=== PATIENT | male | born 1955 | race Caucasian/White ===

== ENCOUNTER → 2018-01-11 | Outpatient (CLI) | payer BC | LOC: BMCIMAGING 10:23 | PROVIDERS: ATTEND Internal Medicine | DX: J40 Bronchitis, not specified as acute or chronic (principal); M41.84 Other forms of scoliosis, thoracic region; M51.34 Other intervertebral disc degeneration, thoracic region ==

== ENCOUNTER 2018-04-24 18:18 | Emergency (ER) | payer BC ==
--- NOTE | 2018-04-24 18:28 | EDPHY ---
H & P Stated Complaint: kilpatrick not draining well--numerous insertion attempts w/clots Time Seen by Provider: 04/24/18 18:27 - Medical/Surgical History Hx Asthma: No Hx Chronic Respiratory Disease: No Hx Diabetes: No Hx Cardiac Disease: No Hx Renal Disease: No Hx Cirrhosis: No Hx Alcoholism: No Hx HIV/AIDS: No Hx Splenectomy or Spleen Trauma: No Other PMH: BPH, hypothyroid, inguinal hernia - Social History Smoking Status: Never smoked Constitutional: Initial Vital Signs Temperature (C) 36.7 C 04/24/18 18:23 Heart Rate 81 04/24/18 18:23 Respiratory Rate 16 04/24/18 18:23 Blood Pressure 133/87 H 04/24/18 18:23 O2 Sat (%) 97 04/24/18 18:23 O2 Delivery Mode Room Air Allergies/Adverse Reactions: No Known Allergies Allergy (Verified 04/24/18 18:20) Home Medications: Medication Instructions Recorded Amoxicillin 04/24/18 Levothyroxine 04/24/18 Medical Decision Making ED Course/Re-evaluation: CHIEF COMPLAINT: Kilpatrick problems HISTORY OF PRESENT ILLNESS: The patient is a 63 y/o male with a history of BPH post GreenLight procedure arriving with his complaining of Kilpatrick catheter blockage. While flying home from [facility] [place] on Thursday, 3 days ago, he realized his Kilpatrick catheter was blocked. He attempted to recatheterize on the flight unsuccessfully with single-use catheters and says, "I may have done some damage. " On landing in [place], he went to the closest ED where they had multiple catheter attempts and ultimately a urologist had to place a Kilpatrick with a cystoscope. The following day he again developed urinary blockage and went to another ED where they were able to flush blood clots out of the Kilpatrick successfully. The catheter became blocked again Thursday morning and required another ED visit. He arrived home this morning and had about a 30-hour period of normal urinary drainage until it became blocked again around 15:00 this afternoon, 3.5 hours ago. He has associated suprapubic discomfort. No fever, vomiting, diarrhea, chest pain, dyspnea, or other symptoms. He is scheduled to see his urologist, Dr. Mitchell, on Thursday. REVIEW OF SYSTEMS: A 10 point review of systems was performed and is negative with the exception of the elements mentioned in the history of present illness. PHYSICAL EXAM: HR, BP, O2 Sat, RR. Temp noted General Appearance: Alert, well hydrated, appropriate, and non-toxic appearing. Head: Atraumatic without scalp tenderness or obvious injury Eyes: Pupils equal, round, reactive to light and accommodation, EOMI, no trauma , no injection. Nose: Atraumatic, no rhinorrhea, clear. Throat: Mucus membranes moist. Neck: Supple. Respiratory: No retractions, no distress, no wheezes, and no accessory muscle use. Lungs are clear to auscultation bilaterally. Cardiovascular: Regular rate and rhythm, no murmurs, rubs, or gallops. Good capillary refill all extremities. Gastrointestinal: Abdomen is soft, nontender, non-distended, no masses, no rebound, no guarding, no peritoneal signs. Kilpatrick bag almost empty, pink-tinged urine with clots present. Musculoskeletal: Normal active ROM of all extremities, atraumatic. Neurological: Alert, appropriate, and interactive. Nonfocal. Skin: No rashes, good turgor, no nodules on palpation. Past medical history: BPH, hypothyroid Past surgical history: inguinal hernia, GreenLight laser surgery Family history: Noncontributory Social history: at bedside. Lives in [place]. Employed. Urologist: Dr. Mitchell DIFFERENTIAL DIAGNOSIS: The differential diagnosis for the patient's urinary retention included but was not limited to medication side effect, neurologic causes, outflow obstruction including prostatic hypertrophy, and infection. MEDICAL DECISION MAKING: This is a 63 y/o male with BPH with a 3-day history of recurrent blocked Kilpatrick issues who presents with a non-draining Kilpatrick for the last 3.5 hours. This most recent Kilpatrick required placement by a urologist via cystoscope 3 days ago while he was traveling and has been blocked multiple times since then. He has a small quantity of pink-tinged urine and blood clots in his leg bag. Bladder scan shows about 100mL of urine. Plan for catheter flushing to see if we can dislodge clot and avoid replacing Kilpatrick since he required cystoscopy for placement. Flushing was successful. Patient will be discharged home with standard care and follow up instructions. He is scheduled to see Dr. Mitchell on Thursday. Return precautions discussed. Departure - Departure Disposition: Home, Routine, Self-Care Clinical Impression: Kiplatrick catheter problem Qualifiers: Encounter type: initial encounter Qualified Code(s): T83.9XXA - Unspecified complication of genitourinary prosthetic device, implant and graft, initial encounter Condition: Good Instructions: Kilpatrick Catheter Placement and Care (ED) Additional Instructions: If you have not produced urine in the next 6-8 hours, please return to the ED. Otherwise follow up with Dr. Mitchell on Thursday as planned. Referrals: Christian Reyes MD [Primary Care Provider] - As per Instructions Thanh Mitchell MD [Medical Doctor] - As per Instructions Report Scribed for: Jonathan Stacy Report Scribed by: Caty Billingsley Date of Report: 04/24/18 Time of Report: 18:29
[2018-04-24 21:05] VITALS: BP 127/70
== END 2018-04-24 21:07 | disposition home or self-care (01) ==
DX: T83.098A Other mechanical complication of other urinary catheter, initial encounter (principal); Y82.8 Other medical devices associated with adverse incidents

== ENCOUNTER 2018-05-13 09:30 | Inpatient (IN) | payer OTHER ==
--- NOTE | 2018-05-12 17:58 | GHP ---
[f rep st] PREOP HISTORY AND PHYSICAL ADMISSION DIAGNOSIS: Urinary retention. HISTORY: This is a 63-year-old gentleman who has had elevated PSA and he has had MRIs and biopsy of the prostate revealing no suggestion of cancer. He has had a prostate that is greater than 180 g in size and most recently he has got a urinary retention and we have elected to intervene with a suprapubic prostatectomy. Indications, complications, options have been discussed. Written and verbal consent were obtained and he is admitted for the above procedure. PAST HISTORY: He has had BPH with elevated PSA. Biopsies and TURP in the past. Has had hypothyroidism, mitral valve prolapse, prostatitis, testicular atrophy, urinary retention. PAST SURGERIES: Laser prostatectomy. MEDICATIONS: Synthroid, tamsulosin, vitamin D. ALLERGIES: None. FAMILY HISTORY: Positive for diabetes and hypertension. SOCIAL HISTORY: Drinks a small amount of alcohol daily and is a nonsmoker, . REVIEW OF SYSTEMS: Negative cardiac, respiratory, GI, and endocrine. PHYSICAL EXAMINATION: VITAL SIGNS: Stable. CHEST: Clear. HEART: Regular rate and rhythm. ABDOMEN: Normal. No organomegaly, rebound, or guarding. GENITALIA: Normal. He has had prior evaluation of the prostate which revealed prostatomegaly and urinary retention. At the present time, he is admitted for a suprapubic prostatectomy. Indication , complications, options outlined well. /[id number]/MODL MTDD
[2018-05-13] MEDS ORDERED: LR 1,000 ML IV ONE (09:38)
[2018-05-13] MEDS ORDERED: ceFAZolin 2 GM/DEXTROSE 100 ML IV ONE (09:45)
--- NOTE | 2018-05-13 10:28 | PDHPUP ---
History & Physical Update H&P update statement: This history and physical update is based on an assessment of the patient which was completed after admission or registration (within 24 hours), but prior to the surgery/procedure. H&P update: H&P reviewed & patient examined, no change in patient's condition since H&P completed
[2018-05-13] MEDS ORDERED: PROPOFOL 200 MG/20 ML VIAL ONE (10:33)
[2018-05-13] MEDS ORDERED: fentaNYL 100 MCG/2 ML INJ ONE ×4 (10:33→17:56)
[2018-05-13] MEDS ORDERED: LIDOCAINE 2% 2 ML INJ ONE (10:35)
[2018-05-13] MEDS ORDERED: ONDANSETRON 4 MG/2 ML VIAL ONE (10:36)
[2018-05-13] MEDS ORDERED: ROCURONIUM 50 MG/5 ML VIAL ONE ×2 (10:36→11:19)
[2018-05-13] MEDS ORDERED: DEXAMETHASONE 4 MG/ML VIAL ONE ×2 (10:36→18:40)
[2018-05-13] MEDS ORDERED: KETOROLAC 30 MG/1 ML SDV ONE (10:38)
[2018-05-13] MEDS ORDERED: MIDAZOLAM 2 MG/2 ML VIAL IVP ONE (10:42)
--- NOTE | 2018-05-13 10:43 | PDANEPAE ---
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 - Pulmonary History Hx COPD: No Hx Asthma/Reactive Airway Disease: No Hx Recent Upper Respiratory Infection: No Hx Oxygen in Use at Home: No Hx Sleep Apnea: No Sleep Apnea Screening Result - Last Documented: Negative Pulmonary History Comment: developed cough earlier this spring used inhaler for few weeks resolved - Neurologic History Hx Cerebrovascular Accident: No Hx Seizures: No Hx Dementia: No - Endocrine History Hx Diabetes: No - Renal History Hx Renal Disorders: No - Liver History Hx Hepatic Disorders: No - Neurological & Psychiatric Hx Hx Neurological and Psychiatric Disorders: No - Cancer History Hx Cancer: No - Congenital Disorder History Hx Congenital Disorders: No - GI History Hx Gastrointestinal Disorders: No - Other Health History Other Health History: none - Chronic Pain History Chronic Pain: No - Surgical History Prior Surgeries: greenlight laser ,colonoscopy ANE Review of Systems Review of Systems: - Exercise capacity METS (RN): 4 METS ANE Patient History - Allergies Allergies/Adverse Reactions: No Known Allergies Allergy (Verified 04/24/18 18:20) - Home Medications Home medications: home medication list seen and reviewed Home Medications: Levothyroxine [Synthroid 175 mcg (*)] 175 mcg PO DAILY06 04/24/18 [Last Taken ] - NPO status NPO Since - Liquids (Date): 05/12/18 NPO Since - Liquids (Time): 23:30 NPO Since - Solids (Date): 05/12/18 NPO Since - Solids (Time): 20:30 - Anes Hx Anes Hx: no prior problems - Smoking Hx Smoking Status: Never smoked - Family Anes Hx Family Hx Anesthesia Complications: none ANE Labs/Vital Signs - Vital Signs Blood Pressure: 149/94 Heart Rate: 68 Respiratory Rate: 14 O2 Sat (%): 96 Height: 177.8 cm Weight: 71.668 kg ANE Physical Exam - Airway Neck exam: FROM Mallampati Score: Class 1 Mouth exam: normal dental/mouth exam - Pulmonary Pulmonary: no respiratory distress - Cardiovascular Cardiovascular: regular rate and rhythym - ASA Status ASA Status: II ANE Anesthesia Plan Anesthesia Plan: general endotracheal anesthesia
[2018-05-13] MEDS ORDERED: HYDROmorphONE/DILAUDID 2 MG/ML INJ ONE (11:06)
[2018-05-13] MEDS ORDERED: BUPIVACAINE 0.25% 270 ML in PUMP SET 1 EA NB SCH (11:15)
[2018-05-13] MEDS ORDERED: DIAZEPAM 5 MG/ML 1 ML SYR IVP PRN (11:54)
[2018-05-13] MEDS ORDERED: ALBUTEROL 3 ML DEYVIAL IH PRN (11:54)
[2018-05-13] MEDS ORDERED: NALOXONE HCL 0.4 MG/ML INJ IVP PRN ×2 (11:54→12:53)
[2018-05-13] MEDS ORDERED: PHENYLEPHRINE HCL 100 MCG/ML SYR IVP PRN (11:54)
[2018-05-13] MEDS ORDERED: HYDROCODONE/APAP 5/325 TAB PO PRN (11:54)
[2018-05-13] MEDS ORDERED: fentaNYL 100 MCG/2 ML INJ IVP PRN (11:54)
[2018-05-13] MEDS ORDERED: ONDANSETRON 4 MG/2 ML VIAL IVP PRN ×2 (11:54→12:53)
[2018-05-13] MEDS ORDERED: LABETALOL HCL 5 MG/ML 20 ML MDV IVP PRN (11:54)
[2018-05-13] MEDS ORDERED: LR 500 ML IV PRN (11:54)
[2018-05-13] MEDS ORDERED: PROMETHAZINE HCL 25 MG/ML INJ IVP PRN (11:54)
[2018-05-13] MEDS ORDERED: ACETAMINOPHEN 500 MG TAB PO PRN (11:54)
[2018-05-13] MEDS ORDERED: oxyCODONE IR 5 MG TAB PO PRN (11:54)
--- NOTE | 2018-05-13 11:54 | POSTANESTH ---
Post Anesthetic Evaluation Cardiovascular Status: Normal, Stable Respiratory Status: Normal, Stable Level of Consciousness/Mental Status: Can Participate in Eval, Alert and Oriented Pain Control: Adequate, Prn Tx Ordered Nausea/Vomiting Control: Adequate, Prn Tx Ordered Complications Possibly Related to Anesthesia: None Noted
[2018-05-13] MEDS ORDERED: SUGAMMADEX SODIUM 200 MG/2 ML VIAL IVP ONE (11:57)
[2018-05-13] MEDS ORDERED: BUPIVACAINE 0.25% 30 ML SDV ONE (12:21)
[2018-05-13] MEDS ORDERED: HYDROmorphONE/DILAUDID 6 MG/30 ML PCA IV PRN (12:53)
[2018-05-13] MEDS ORDERED: ONDANSETRON DISINTEGRATING 4 MG TAB PO PRN (12:53)
--- NOTE | 2018-05-13 12:53 | POSTOPPROG ---
Post Op Note Date of Operation: 05/13/18 (dictated) Surgeon: Thanh Mitchell Property Insurance Inspector: Milagro Anesthesiologist: Howie Anesthesia: GET(General Endotracheal) Pre-op Diagnosis: bph with retention Procedure: sp cath and on-Q-pain pumps and suprapubic cystostomy Inf/Abcess present in the surg proc area at time of surgery?: No EBL: 100-500 Complications: none Drains: Scooby Choe, Other (sp cath, onQpumps) Specimen(s): sent
[2018-05-13] MEDS ORDERED: HYDROmorphONE/DILAUDID 1 MG/ML INJ ONE (13:04)
[2018-05-13] MEDS ORDERED: DIAZEPAM 5 MG/ML 1 ML SYR ONE (13:05)
[2018-05-13] MEDS: HYDROmorphONE/DILAUDID 1 MG/ML INJ IVP PRN ×3 (13:06→14:06)
--- NOTE | 2018-05-13 13:06 | GOP ---
[f rep st] OPERATIVE REPORT DATE OF OPERATION: 05/13/2018 SURGEON: Thanh Mitchell MD RETREAD MOLD OPERATOR: Viry Humphrey CFA ANESTHESIA: General. PREOPERATIVE DIAGNOSIS: Benign prostatic hypertrophy, urinary retention with prostatomegaly. POSTOPERATIVE DIAGNOSIS: Benign prostatic hypertrophy, urinary retention with prostatomegaly. PROCEDURE PERFORMED: Open suprapubic simple prostatectomy and placement of ON-Q pain pump, and supra pubic cystostomy tube. FINDINGS: SPECIMENS: Sent to Pathology. ESTIMATED BLOOD LOSS: Per Anesthesia was 350 mL. DESCRIPTION OF PROCEDURE: After undergoing general anesthesia, prepped and draped in normal sterile fashion, and a catheter was passed in his bladder, a midline incision was made infraumbilical through the linea alba into the space of Retzius. With appropriate self-retraction, I was able to identify the anterior bladder wall, which was incised and opened that, and then with appropriate instrumentati on, could identify the obstructive prostate and could identify the ureteral orifices. At that point, I circumscribed the bladder neck with the electrocautery coagulation mode, and then enucleated the p rostate intact. At the end, I put sutures at the 4-1/2 to 5 hour side on the right side and 7-1/2 to 8 on the left to provide hemostasis, and then passed a Phillip catheter placed with 90 cc balloon and traction placed, and that controlled any venous bleeding identified. At that point, the bladder was closed in 2 layers using 0 Vicryl, and then subcutaneous tissue was hemostatic and the space of Retzi us hemostatic. I elected to place a 10 flat Scooby-Choe drain. Prior to the bladder closure, a 20 -Mont[place] Malecot tube was passed to the left side of the bladder wall and came out through the abdomin al wall through a separate incision. The bladder was tested and noted to be watertight and irrigated . All the catheters irrigated well. Then I started CBI, which continued to irrigate during closure of the wound. Two ON-Q pain pumps were placed to the right and left sides of the abdominal incision subfascially, and they were primed with 15 mL of anesthetic bilaterally. Then the wound was closed u sing 0 Vicryl in the fascia, the subcutaneous tissue, hemostatic skin vincent placed. Drains were se wn in place with silk, and sterile dressing was placed. He tolerated the procedure well. COMPLICATIONS: None. He will be admitted for postoperative care. /[id number]/MODL
[2018-05-13] MEDS ORDERED: OPIUM/BELLADONNA ALKALO SUPP PR ONE (13:55)
[2018-05-13] MEDS: OPIUM/BELLADONNA ALKALO SUPP PR PRN (13:59)
--- NOTE | 2018-05-13 13:59 | PDMN ---
Medical Necessity Medical necessity: Pt meets inpt criteria per MD order and Urologic surgery or procedure GRG, inpt only surgery: Open suprapubic simple prostatectomy and placement of O N-Q pain pump and suprapubic cystostomy tube.
[2018-05-13] MEDS ORDERED: HYDROCODONE/APAP 5/325 TAB ONE (14:24)
[2018-05-13] MEDS: D5W 1/2 NS 1,000 ML IV SCH ×2 (16:40→21:47)
[2018-05-13 17:24] LABS: PLATELET COUNT 259 10^3/uL (150-400)
[2018-05-13] MEDS ORDERED: SUCCINYLCHOLINE CHLORIDE 200 MG/10 ML SYR IVP ONE (18:01)
[2018-05-13] MEDS ORDERED: CISATRACURIUM BESYLATE 20 MG/10 ML VIAL IV ONE (18:09)
[2018-05-13] MEDS ORDERED: PHENYLEPHRINE 10 MG/ML SDV ONE (18:11)
[2018-05-13] MEDS ORDERED: MIDAZOLAM 2 MG/2 ML VIAL ONE (18:17)
[2018-05-13] MEDS ORDERED: THROMBIN (BOVINE) 20,000 UNIT SPRAY TP ONE (18:30)
--- NOTE | 2018-05-13 18:58 | POSTANESTH ---
Post Anesthetic Evaluation Cardiovascular Status: Normal, Stable Respiratory Status: Normal, Stable Level of Consciousness/Mental Status: Can Participate in Eval, Alert and Oriented Pain Control: Adequate, Prn Tx Ordered Nausea/Vomiting Control: Adequate, Prn Tx Ordered Complications Possibly Related to Anesthesia: None Noted (transported to ICU on monitors. stable, comfortable, off pressors.)
--- NOTE | 2018-05-13 18:58 | PDANEPAE ---
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 specialist - Pulmonary History Hx COPD: No Hx Asthma/Reactive Airway Disease: No Hx Recent Upper Respiratory Infection: No Hx Oxygen in Use at Home: No Hx Sleep Apnea: No Sleep Apnea Screening Result - Last Documented: Negative Pulmonary History Comment: developed cough earlier this spring used inhaler for few weeks resolved - Neurologic History Hx Cerebrovascular Accident: No Hx Seizures: No Hx Dementia: No - Endocrine History Hx Diabetes: No - Renal History Hx Renal Disorders: No - Liver History Hx Hepatic Disorders: No - Neurological & Psychiatric Hx Hx Neurological and Psychiatric Disorders: No - Cancer History Hx Cancer: No - Congenital Disorder History Hx Congenital Disorders: No - GI History Hx Gastrointestinal Disorders: No - Other Health History Other Health History: none - Chronic Pain History Chronic Pain: No - Surgical History Prior Surgeries: greenlight laser ,colonoscopy ANE Review of Systems Review of Systems: - Exercise capacity METS (RN): 4 METS ANE Patient History - Allergies Allergies/Adverse Reactions: No Known Allergies Allergy (Verified 04/24/18 18:20) - Home Medications Home Medications: Levothyroxine [Synthroid 175 mcg (*)] 175 mcg PO DAILY06 04/24/18 [Last Taken ] Acetaminophen [Tylenol ES 500 mg (*)] 500 - 1,000 mg PO Q8H PRN 05/13/18 [Last Taken 05/12/18] - NPO status NPO Since - Liquids (Date): 05/12/18 NPO Since - Liquids (Time): 23:30 NPO Since - Solids (Date): 05/12/18 NPO Since - Solids (Time): 20:30 - Smoking Hx Smoking Status: Never smoked - Family Anes Hx Family Hx Anesthesia Complications: none ANE Labs/Vital Signs - Labs Result Diagrams: 05/13/18 17:10 - Vital Signs Blood Pressure: 68/52 Heart Rate: 90 Respiratory Rate: 16 O2 Sat (%): 94 Height: 177.8 cm Weight: 71.668 kg ANE Physical Exam - Airway Neck exam: FROM Mallampati Score: Class 2 Mouth exam: normal dental/mouth exam - Pulmonary Pulmonary: no respiratory distress - Cardiovascular Cardiovascular: regular rate and rhythym - ASA Status ASA Status: II, E ANE Anesthesia Plan Anesthesia Plan: general endotracheal anesthesia Lines/Monitors: arterial line Urgent/Emergent Case: Emma victoria completed preop but documented later for safe timely pt care
[2018-05-13] MEDS ORDERED: [UNRECOGNIZED DRUG - OTHER] IV ONE (19:15)
[2018-05-13] MEDS ORDERED: NS IV ONE (19:15)
[2018-05-13] MEDS ORDERED: *PREOP 1000MG*TRANEX ACID/NS 100 ML IV ONE (19:30)
[2018-05-13 19:34] LABS: INR 1.5 (0.83-1.16); PROTIME(PATIENT) 18.3 SEC (12.0-15.0)
[2018-05-13] MEDS ORDERED: BACITRACIN ZINC 14.2 GM OINTTUBE TP ONE (20:01)
--- NOTE | 2018-05-13 20:47 | POSTOPPROG ---
Post Op Note Date of Operation: 05/13/18 (dictated- discussed with Dr. Ya in handoff to ICU) Surgeon: Thanh Mitchell ([facility] central line) Senior Software Development Manager: Adi Anesthesiologist: Howie Anesthesia: GET(General Endotracheal) Pre-op Diagnosis: post operative bleeding Procedure: exploration of bladder and prostatic fossa for bleeding Findings: prostate fossa diffuse venous bleeding, bladder full full of clots Inf/Abcess present in the surg proc area at time of surgery?: No EBL: Greater than 1000 Complications: bleeding Drains: Scooby Choe, Other (kilpatrick, sp cath) Specimen(s): none
--- NOTE | 2018-05-13 20:49 | PDFACE2FAC ---
Face to Face Encounter Discussed findings with and describe operative procedure and findings. Answered any questions and discussed pt need for ICU and one on one care thru the night. Will see pt in AM.
--- NOTE | 2018-05-13 21:29 | GOP ---
[f rep st] OPERATIVE REPORT DATE OF OPERATION: 05/13/2018 SURGEON: Thanh Mitchell MD EMERGING TECHNOLOGIES DIRECTOR: Dr. Joshi ANESTHESIA: general. ANESTHESIOLOGIST: Dr. Denise. PREOPERATIVE DIAGNOSIS: Postoperative hemorrhage from prostate/suprapubic prostatectomy and explorat ion of prostatic fossa and bladder evacuation of clots. POSTOPERATIVE DIAGNOSIS: Postoperative hemorrhage from prostate/suprapubic prostatectomy and explora tion of prostatic fossa and bladder evacuation of clots. PROCEDURE PERFORMED: Exploration and closing the venous bleeding sites of the prostatic fossa. FINDINGS: SPECIMENS: None. DESCRIPTION OF PROCEDURE: After undergoing general anesthesia and prepped and draped in normal steri le fashion. He was hypertensive and for vascular access Dr. Escobar put in a central line for us and t rigoberto with appropriate resuscitation and being prepped and draped in normal time-out, we took out the s taples, opened the abdominal incision, and then with appropriate self retraction the cystotomy was op en and evacuated. Approximately 500 mL clot out of the bladder. Then packed the prostatic fossa so there was no hemorrhage in the bladder. Inspection revealed no bleeding sites from the bladder edges and at that point, was able to expose the prostatic fossa, and there was diffuse oozing. I ended up closing the prostatic fossa with interrupted 2-0 Vicryl sutures and 3-0 Vicryl sutures and then it s till had a tendency to be oozing, so I opened the anterior capsule of the prostate and tried to ident mauro any significant vascular bleeding. There was no arterial bleeding at all. He had good urine out put throughout this whole procedure. With the use of topical agents, tried to provide hemostasis. A fter opening up the anterior part of the prostate could actually see some venous areas that I had not included just anterior to the urethra, so that was closed and, once again, I tried to approximate cl ose the prostatic fossa the best I could with interrupted sutures and then used the thrombin and topi luis alberto agent. Then what I did is, I took an 0 Vicryl tried to approximate the bladder neck, making it t o where the Phillip catheter balloon would not fall into the prostatic fossa. [place] the bleeding was un britton good control. At that point, I closed the anterior prostatic fossa with an 0 Vicryl running stitch and then the kimberli dder was closed in 2 layers using 0 Vicryl. The Malecot tube, made sure that it was in the appropria te position, then the balloon and the catheter were inflated with approximately 50 mL of fluid. Patricia rivers the procedure, it felt that he had clear urine on irrigation and I closed the linea alba with a ru nning 0 Vicryl and subcutaneous tissue was hemostatic and rinsed and then the skin vincent placed. D rains were sewn in place with 0 silk. When the patient woke up, he started having a bit of a pinkish discharge in the urine, but I did not feel there were any clots and. At the present time, he is lizbeth rivers transferred to the intensive care unit. I have tried to talk to the lead pressman roto [employer] but had no luck, so I have asked that they give me a call. I will talk to his . SURGEON: Thanh Mitchell MD. COMPLICATIONS: Postoperative hemorrhage and bleeding. CONDITION: He is stable leaving the operating room. /[id number]/MODL
[2018-05-13] MEDS: oxyCODONE IR 5 MG TAB PO PRN (21:35)
[2018-05-13] MEDS: ERTAPENEM 1 GM in NS 100 ML IV SCH (21:47)
[2018-05-13] MEDS: MELATONIN 3 MG TAB PO SCH (22:18)
--- NOTE | 2018-05-13 22:34 | GHP ---
[f rep st] HISTORY AND PHYSICAL DATE OF ADMISSION: 05/13/2018 CHIEF COMPLAINT: Perioperative bleeding and subsequent shock requiring intensive care admission. HISTORY OF PRESENT ILLNESS: Mr. Tobar is a 63-year-old male with history of benign prostatic hypertrophy, who has had a prior GreenLight laser treatment , but developed ongoing urinary retention and hematuria, and was admitted today for suprapubic prostatectomy. He went to the operating room with Dr. Mitchell and underwent suprapubic prostatectomy. Postoperatively, he developed active bleeding with bladder outlet obstruction and hypotension. He returned to the operating room where multiple clots were evacuated from the bladder. A Phillip catheter was placed. He continues to have some blood-tinged urine and is currently on continuous bladder irrigation. He received TXA and 2 units of packed red blood cells in the operating room, and his hemoglobin at the time of my dictation is 11.7, which is relatively unchanged from his previous postoperative hemoglobin of 11.5. He did drop his blood pressure from 130s over 80s to 65/52. A subclavian central line was placed in the operating room and he was treated briefly with Arthur-Synephrine. After blood transfusion, his blood pressure stabilized and he is now off pressors. White blood cell count is noted to be 32.6. Prior to admission for his surgery, he did note gross hematuria. He denied any recent fevers, chills, rigors, nausea or vomiting. At this time, he denies abdominal pain. He has remained afebrile postoperatively. He denies chest pain, shortness of breath. At the time of my evaluation, he is resting comfortably in the intensive care unit with a blood pressure of 117/68 off all pressors. He is currently pain- free and has no complaints. PAST MEDICAL HISTORY: 1. Urinary retention secondary to benign prostatic hypertrophy, status post previous GreenLight laser treatment, and now status post suprapubic prostatectomy. 2. Elevated PSA. 3. Hypothyroidism. 4. Mitral valve prolapse. MEDICATIONS: Please see Sol[facility] completed outpatient medication list. ALLERGIES: HE HAS NO KNOWN DRUG ALLERGIES. FAMILY HISTORY: Positive for diabetes and hypertension. SOCIAL HISTORY: The patient is . His is at the bedside. He denies alcohol or tobacco use. REVIEW OF SYSTEMS: A 10-point review of systems performed and was negative stress, except as per HPI. OBJECTIVE: CURRENT VITAL SIGNS: He is afebrile. Blood pressure 117/68, heart rate in the 70s, respiratory rate 16. He is 94% on room air. GENERAL: Patient is awake, alert, oriented, in no distress. HEENT: Head is atraumatic, normocephalic. Pupils equal, round, react to light. Extraocular movements are intact. Oropharynx clear. Mucous membranes are moist. NECK: Supple. No JVD. HEART: Regular rate and rhythm without murmur. LUNGS: Clear to auscultation bilaterally. ABDOMEN: Soft, mildly distended, mild diffuse but appropriate tenderness to palpation without rebound, rigidity or guarding. His midline incision is bandaged with a small amount of blood. EXTREMITIES: Without cyanosis, clubbing or edema. GENITOURINARY: He has blood tinged urine in the Phillip with continuous bladder irrigation. LABORATORY DATA: CBC reveals white blood cell count 32.6 with 69% neutrophils and 0% bands, hemoglobin 11.5, repeat hemoglobin 11.7, status post 2 units of packed red blood cells. INR is 1.55. Fibrinogen is low at 157. D-dimer is pending. ABG showed a pH of 7.34, pCO2 of 39, PO2 of 347. Ionized calcium is 1.08. ASSESSMENT AND PLAN: Mr. Tobar is a 63-year-old male who is postop day 0 from a suprapubic prostatectomy and developed acute postop bleeding with shock. 1. Shock secondary to acute blood loss postoperatively. He briefly required pressors, though is currently normotensive off all pressors. A central line is placed. Although I suspect this is this was likely secondary to blood loss, I do note marked leukocytosis with a white blood cell count of 32.6. Will send a lactic acid and blood cultures and cover him with ertapenem while we follow his culture data. 2. Acute blood loss anemia status post tranexamic acid and 2 units of packed red blood cells. Hemoglobin currently stable. He is normotensive. Continue ICU monitoring and trend his hemoglobin and hematocrit. 3. Urinary retention secondary to benign prostatic hypertrophy with an elevated PSA, status post suprapubic prostatectomy, postop day 0, Phillip catheter is in place and as above, he has continuous bladder irrigation. Postop management per Urology. He continues to drain his bladder adequately. 4. Hypothyroidism. Continue his levothyroxine once he is able to take p.o. 5. Deep venous thrombosis prophylaxis. Pharmacologic therapy is deferred given his perioperative bleeding. We will place sequential compression devices. 6. Code status: Patient is full code. DISPOSITION: The patient will continue ICU monitoring and remain inpatient. Thank you very much for this consultation. Medicine team will continue to follow him on a daily basis. Please call us with any questions or concerns. /[id number]/MODL MTDD
[2018-05-14] MEDS: D5W 1/2 NS 1,000 ML IV SCH (06:11)
[2018-05-14 06:14] LABS: PLATELET COUNT 178 10^3/uL (150-400)
[2018-05-14] MEDS: LEVOTHYROXINE 175 MCG TAB PO SCH (06:36)
[2018-05-14] MEDS: ERTAPENEM 1 GM in NS 100 ML IV SCH (09:38)
--- NOTE | 2018-05-14 10:21 | SOAPPROG ---
SOAP Progress Note Assessment/Plan: Assessment: Benign localized hyperplasia of prostate with urinary obstruction Acute POD 1, stable, minimal pain, continue care Hemorrhage of prostate Acute POD 1, stable, appreciate intensive care providers Plan: continue post operative care 05/14/18 10:56 Subjective: better and no pain other than hiccups and occasional bladder spasms Objective: Vital Signs Temp Pulse Resp BP Pulse Ox 37.2 C 83 18 110/67 95 05/14/18 07:41 05/14/18 07:41 05/14/18 07:41 05/14/18 07:41 05/14/18 07:41 Laboratory Results 05/14/18 06:10 05/14/18 06:10 05/13/18 05/14/18 05/15/18 05:59 05:59 05:59 Intake Total 2150 1633 Output Total 970 1965 Balance 1180 -332 PT 18.3 SEC (12.0-15.0) H 05/13/18 19:08 INR 1.50 (0.83-1.16) H 05/13/18 19:08 Physical Exam - Physical Exam General Appearance: alert Neck: normal inspection Respiratory: No respiratory distress Cardiac/Chest: regular rate, rhythm Abdomen: soft Back: No CVA tenderness Neuro/Psych: alert, oriented x 3 ICD10 Worksheet Patient Problems: Problems Problem Status Onset Benign localized hyperplasia of prostate with urinary obstruction Acute Hemorrhage of prostate Acute
--- NOTE | 2018-05-14 13:37 | GCON ---
[f rep st] CONSULTATION CUSTOMER ENGINEER CONSULTATION REASON FOR ADMISSION: Shock, acute blood loss, urinary retention. HISTORY: Mr. Tobar is an extremely pleasant 63-year-old white male with past medical history of mitral valve prolapse, hypothyroidism, elevated PSA and urinary retention secondary to benign prostat ic hypertrophy. He has recently undergone a GreenLight laser treatment. He is also status post supr apubic prostatectomy. He went to the operating room with Dr. Mitchell for his suprapubic prostatectomy and had bleeding postoperatively. He went back to the operating room and the bleeding was stopped. He had received 2 units of packed red cells as well as TXA, and he was subsequently transferred to [facility] intensive care unit. He was briefly also on Arthur-Synephrine. Currently he is resting comfortably i n the intensive care unit. His only complaints right now are hiccups and some bladder spasms. He den ies any chest pain, pleuritic-type chest pain or angina equivalent. There is no shortness of breath. No cough or production of sputum. He denies any abdominal pain. REVIEW OF SYSTEMS: 10-point review of systems was performed and negative, except for what is listed in the HPI. PAST MEDICAL HISTORY: Significant for urinary retention, hypothyroidism, mitral valve prolapse. PAST SURGICAL HISTORY: He has had GreenLight laser procedure as well as post suprapubic prostatectom y. ALLERGIES: None known to medications. FAMILY HISTORY: Noncontributory. SOCIAL HISTORY: Patient is . He denies any alcohol use or tobacco use. He has [facility]. PHYSICAL EXAMINATION: VITAL SIGNS: Blood pressure is 110/64, pulse is 66, respiration 18, temperatu re is 36.7, oxygen saturation is 93% on room air. GENERAL: He is a well-developed, well-nourished [age]-year-old white male who is resting comfortably in no acute distress. HEENT: Eyes are PERRLA, EOMI . Throat shows no erythema or tonsillar hypertrophy. NECK: Supple. There is no cervical adenopath y. HEART: Regular rate and rhythm without murmurs, rubs, gallops. LUNGS: Diminished breath sounds but no wheeze. ABDOMEN: Soft, nontender. Bowel sounds are present in all 4 quadrants. EXTREMITIE S: No clubbing, cyanosis, or edema. LABORATORIES: White count is 21.6, hemoglobin 10, hematocrit 30, platelet count is 178. INR is 1.5. Sodium 137, potassium 4.7, chloride 106, his CO2 is 24, BUN 15, creatinine 0.8, glucose is 156. Chest x-ray: Central line is in good position. Otherwise clear. IMPRESSION: 1. Urinary retention. 2. Status post GreenLight procedure. 3. Status post suprapubic prostatectomy. 4. Shock secondary to acute blood loss. Resolved. 5. Hypothyroidism. 6. Mitral valve prolapse. 7. Hiccups. RECOMMENDATIONS: 1. Agree with following H and H closely. 2. Bladder irrigation. 3. DVT and PE prophylaxis, holding anticoagulation for now. 4. Stress ulcer prophylaxis. 5. With regard to his hiccups, I have discussed the use of Thorazine. Patient wishes to wait at thi s time. /[id number]/MODL
--- NOTE | 2018-05-14 15:13 | HOSPPROG ---
Hospitalist Progress Note Assessment/Plan: 63 yo M w bph s/p open prostatectomy. post op course c/b bleeding and hemorrhagic shock shock: resolved post op bleeding: hct stable clear urine, albeit w bladder irrigation repeat hct in AM bladder spasm: encouraged suppository hiccups: improved proph: scd's Subjective: case d/w dr moseley Objective: Vital Signs Temp Pulse Resp BP Pulse Ox 36.7 C 77 13 105/64 93 05/14/18 12:00 05/14/18 14:00 05/14/18 14:00 05/14/18 14:00 05/14/18 14:00 Laboratory Results 05/14/18 06:10 05/14/18 06:10 05/13/18 05/14/18 05/15/18 05:59 05:59 05:59 Intake Total 2150 2283 Output Total 970 2990 Balance 1180 -707 PT 18.3 SEC (12.0-15.0) H 05/13/18 19:08 INR 1.50 (0.83-1.16) H 05/13/18 19:08 - Physical Exam Constitutional: no apparent distress, appears nourished Eyes: PERRL, anicteric sclera Ears, Nose, Mouth, Throat: moist mucous membranes, hearing normal Cardiovascular: regular rate and rhythym, no murmur, rub, or gallop Respiratory: no respiratory distress, no rales or rhonchi Gastrointestinal: normoactive bowel sounds, soft, non-tender abdomen Genitourinary: no bladder fullness, kilpatrick in urethra, other (clear urine) Skin: warm, normal color Musculoskeletal: full muscle strength, no muscle tenderness Neurologic: AAOx3 Psychiatric: interacting appropriately, not anxious Lymph, Heme, Immunologic: no cervical LAD ICD10 Worksheet Patient Problems: Problems Problem Status Onset Benign localized hyperplasia of prostate with urinary obstruction Acute Hemorrhage of prostate Acute
--- NOTE | 2018-05-14 16:31 | ASMTCASEMG ---
Living Arrangements What is your living Answers: With Spouse arrangement? Who do you live with? Type Of Residence What kind of residence do Answers: House you live in? Discharge Plan Comments Coordination Status Comments Notes: Pt is a 63 y/o man admitted for perioperative bleeding and subsequent shock requiring intensive care admission. Pt will most likely d/c independent when medically stable. No therapies ordered at this time. CM available for changes. Plan: Independent Date Signed: 05/14/2018 04:30 PM Electronically Signed By:GRACE England
[2018-05-14] MEDS: MELATONIN 3 MG TAB PO SCH (20:18)
[2018-05-14] MEDS: OPIUM/BELLADONNA ALKALO SUPP PR PRN (20:18)
[2018-05-14] MEDS: oxyCODONE IR 5 MG TAB PO PRN (22:13)
[2018-05-15] MEDS: oxyCODONE IR 5 MG TAB PO PRN ×2 (01:02→12:16)
[2018-05-15] MEDS: LEVOTHYROXINE 175 MCG TAB PO SCH (04:54)
[2018-05-15] MEDS: OPIUM/BELLADONNA ALKALO SUPP PR PRN ×4 (07:33→20:54)
[2018-05-15] MEDS: ERTAPENEM 1 GM in NS 100 ML IV SCH (08:07)
--- NOTE | 2018-05-15 08:59 | PDINTPN ---
Recovery Agent Progress Note Assessment/Plan: Assessment/plan: * Urinary retention with prostatic hypertrophy-now having leaking around the catheter -per Urology * Status post suprapubic prostatectomy * Bladder spasm-intermittent, and does not last very long * Hiccups-resolved * Hypothyroidism * History of mitral valve prolapse * Pain-reasonably well controlled * Nutrition-adequate Subjective: Resting comfortably in bed. Objective: Vital Signs Temp Pulse Resp BP Pulse Ox 36.8 C 79 10 L 150/63 H 98 05/15/18 08:00 05/15/18 08:00 05/15/18 08:00 05/15/18 08:00 05/15/18 08:00 Laboratory Results 05/15/18 05:00 05/15/18 05:00 05/14/18 05/15/18 05/16/18 05:59 05:59 05:59 Intake Total 2150 3901 360 Output Total 970 5115 Balance 1180 -1214 360 PT 18.3 SEC (12.0-15.0) H 05/13/18 19:08 INR 1.50 (0.83-1.16) H 05/13/18 19:08 - Time Spent With Patient Time Spent With Patient: 25 min of time spent with patient, over 1/2 involved with coordination of care counseling. Case discussed with nursing Physical Exam - Physical Exam General Appearance: WD/WN, alert EENT: PERRL/EOMI Neck: non-tender, full range of motion, supple, normal inspection Respiratory: chest non-tender, lungs clear, normal breath sounds Cardiac/Chest: normal peripheral pulses, regular rate, rhythm Peripheral Pulses: 2+: carotid (R), carotid (L), femoral (R), femoral (L), dorsalis-pedis (R), dorsalis-pedis (L) Abdomen: normal bowel sounds, non-tender, soft Male Genitalia: deferred Rectal: deferred Skin: normal color, warm/dry Extremities: normal range of motion, non-tender, normal inspection, normal capillary refill Neuro/Psych: no motor/sensory deficits, alert, normal mood/affect, oriented x 3 ICD10 Worksheet Patient Problems: Problems Problem Status Onset Benign localized hyperplasia of prostate with urinary obstruction Acute Hemorrhage of prostate Acute
--- NOTE | 2018-05-15 11:06 | SOAPPROG ---
SOAP Progress Note Assessment/Plan: Assessment: Benign localized hyperplasia of prostate with urinary obstruction Acute POD 2, stable, minimal pain, continue care Hemorrhage of prostate Acute POD 1, stable, appreciate intensive care providers , anemia and not at level for transfusion, cont care, AM , AM labs ordered. CVP placement good by CXR and no pneumothx Plan: continue post operative care 05/15/18 12:23 Subjective: doing better, tx to med surg, intake ok, bladder spasms discussed. Objective: Vital Signs Temp Pulse Resp BP Pulse Ox 36.8 C 80 18 125/76 H 98 05/15/18 08:00 05/15/18 10:00 05/15/18 10:00 05/15/18 10:00 05/15/18 10:00 Laboratory Results 05/15/18 05:00 05/15/18 05:00 05/14/18 05/15/18 05/16/18 05:59 05:59 05:59 Intake Total 2150 3901 360 Output Total 970 5115 Balance 1180 -1214 360 PT 18.3 SEC (12.0-15.0) H 05/13/18 19:08 INR 1.50 (0.83-1.16) H 05/13/18 19:08 Physical Exam - Physical Exam General Appearance: alert Neck: supple Respiratory: No respiratory distress Cardiac/Chest: regular rate, rhythm Skin: warm/dry Extremities: No calf tenderness Neuro/Psych: alert, oriented x 3 ICD10 Worksheet Patient Problems: Problems Problem Status Onset Benign localized hyperplasia of prostate with urinary obstruction Acute Hemorrhage of prostate Acute
--- NOTE | 2018-05-15 13:41 | HOSPPROG ---
Hospitalist Progress Note Assessment/Plan: 63 yo M w bph s/p open prostatectomy. post op course c/b bleeding and hemorrhagic shock shock: resolved post op bleeding: hct stable clear urine, albeit w bladder irrigation repeat hct in AM ABLA: follow bladder spasm: encouraged suppository hiccups: improved proph: scd's Subjective: case d/w dr moseley. hiccups resolved. bladder spasms decreased Objective: Vital Signs Temp Pulse Resp BP Pulse Ox 37 C 93 20 126/76 H 95 05/15/18 12:00 05/15/18 12:00 05/15/18 12:00 05/15/18 12:00 05/15/18 12:00 Laboratory Results 05/15/18 05:00 05/15/18 05:00 05/14/18 05/15/18 05/16/18 05:59 05:59 05:59 Intake Total 2150 3901 360 Output Total 970 5115 Balance 1180 -1214 360 PT 18.3 SEC (12.0-15.0) H 05/13/18 19:08 INR 1.50 (0.83-1.16) H 05/13/18 19:08 - Physical Exam Constitutional: no apparent distress, appears nourished Eyes: PERRL, anicteric sclera Ears, Nose, Mouth, Throat: moist mucous membranes, hearing normal Cardiovascular: regular rate and rhythym, no murmur, rub, or gallop Respiratory: no respiratory distress, no rales or rhonchi Gastrointestinal: normoactive bowel sounds, soft, non-tender abdomen Genitourinary: no bladder fullness, kilpatrick in urethra, other (pink urine) Skin: warm, normal color Musculoskeletal: full muscle strength Neurologic: AAOx3 Psychiatric: interacting appropriately ICD10 Worksheet Patient Problems: Problems Problem Status Onset Benign localized hyperplasia of prostate with urinary obstruction Acute Hemorrhage of prostate Acute
[2018-05-15] MEDS: MELATONIN 3 MG TAB PO SCH (20:54)
[2018-05-16] MEDS: OPIUM/BELLADONNA ALKALO SUPP PR PRN ×4 (02:29→19:57)
[2018-05-16] MEDS: LEVOTHYROXINE 175 MCG TAB PO SCH (06:41)
[2018-05-16] MEDS: ERTAPENEM 1 GM in NS 100 ML IV SCH (08:36)
--- NOTE | 2018-05-16 10:51 | SOAPPROG ---
SOAP Progress Note Assessment/Plan: Assessment: Benign localized hyperplasia of prostate with urinary obstruction Acute POD 3, stable, minimal pain, continue care, bladder spasms and attempt use of vesicare,10 mg daily Hemorrhage of prostate Acute POD 3, stable, appreciate intensive care providers , anemia and not at level for transfusion, cont care, AM , AM labs ordered Plan: continue post operative care 05/16/18 12:10 Subjective: better yet continues to have some bladder spasms, not much bowel activity Objective: Vital Signs Temp Pulse Resp BP Pulse Ox 36.9 C 77 18 120/69 98 05/16/18 08:52 05/16/18 08:52 05/16/18 08:52 05/16/18 08:52 05/16/18 08:52 Laboratory Results 05/16/18 03:35 05/15/18 05:00 05/15/18 05/16/18 05/17/18 05:59 05:59 05:59 Intake Total 3901 2660 Output Total 5115 3260 Balance -1214 -600 PT 18.3 SEC (12.0-15.0) H 05/13/18 19:08 INR 1.50 (0.83-1.16) H 05/13/18 19:08 Physical Exam - Physical Exam General Appearance: alert Neck: supple Respiratory: No respiratory distress Cardiac/Chest: regular rate, rhythm Abdomen: non-tender, other (incision clean, SP site normal) Male Genitalia: normal genitalia Back: No CVA tenderness Skin: normal color, warm/dry Extremities: No calf tenderness, No Leigh's sign Neuro/Psych: oriented x 3 ICD10 Worksheet Patient Problems: Problems Problem Status Onset Benign localized hyperplasia of prostate with urinary obstruction Acute Hemorrhage of prostate Acute
--- NOTE | 2018-05-16 13:34 | HOSPPROG ---
Hospitalist Progress Note Assessment/Plan: 63 yo M w bph s/p open prostatectomy. post op course c/b bleeding and hemorrhagic shock shock: resolved post op bleeding: hct stable clear urine, albeit w bladder irrigation repeat hct in AM ABLA: follow bladder spasm: encouraged suppository hiccups: improved proph: scd's Subjective: still w bladder spasm Objective: Vital Signs Temp Pulse Resp BP Pulse Ox 37.1 C 84 18 130/80 H 98 05/16/18 12:53 05/16/18 12:53 05/16/18 12:53 05/16/18 12:53 05/16/18 12:53 Laboratory Results 05/16/18 03:35 05/15/18 05:00 05/15/18 05/16/18 05/17/18 05:59 05:59 05:59 Intake Total 3901 2660 240 Output Total 5115 3260 20 Balance -1214 -600 220 PT 18.3 SEC (12.0-15.0) H 05/13/18 19:08 INR 1.50 (0.83-1.16) H 05/13/18 19:08 - Physical Exam Constitutional: no apparent distress, appears nourished Eyes: PERRL, anicteric sclera Ears, Nose, Mouth, Throat: moist mucous membranes, hearing normal, ears appear normal Cardiovascular: regular rate and rhythym, no murmur, rub, or gallop Respiratory: no respiratory distress, no rales or rhonchi Gastrointestinal: normoactive bowel sounds, soft, non-tender abdomen Genitourinary: no bladder fullness, kilpatrick in urethra, other (light pink urine) Skin: warm, normal color Musculoskeletal: full muscle strength, no muscle tenderness Neurologic: AAOx3 ICD10 Worksheet Patient Problems: Problems Problem Status Onset Benign localized hyperplasia of prostate with urinary obstruction Acute Hemorrhage of prostate Acute
[2018-05-16] MEDS: oxyCODONE IR 5 MG TAB PO PRN (19:59)
[2018-05-16] MEDS: MELATONIN 3 MG TAB PO SCH (20:10)
[2018-05-17] MEDS: OPIUM/BELLADONNA ALKALO SUPP PR PRN ×2 (00:43→04:50)
[2018-05-17] MEDS: ACETAMINOPHEN 325 MG TAB PO PRN ×3 (00:43→21:18)
[2018-05-17] MEDS: oxyCODONE IR 5 MG TAB PO PRN ×2 (00:43→04:49)
[2018-05-17] MEDS: LEVOTHYROXINE 175 MCG TAB PO SCH (04:49)
[2018-05-17] MEDS: SOLIFENACIN SUCCINATE 5 MG TAB PO SCH (08:34)
[2018-05-17] MEDS: ERTAPENEM 1 GM in NS 100 ML IV SCH (08:36)
--- NOTE | 2018-05-17 12:25 | ASMTCMCOM ---
CM Note CM Note Notes: Patient's condition is improving. D/C plan remains home independent. CM available if needs arise. Date Signed: 05/17/2018 12:24 PM Electronically Signed By:Delicia Jolly LCSW
--- NOTE | 2018-05-17 12:38 | HOSPPROG ---
Hospitalist Progress Note Assessment/Plan: 63 yo M w bph s/p open prostatectomy. post op course c/b bleeding and hemorrhagic shock shock: resolved dc abx after today 5 day course of ertapenem post op bleeding: hct stable clear urine, albeit w bladder irrigation hct dwindling does not need transfusion bladder irrigation: check lytes today central line: rec removal TODAY IS DAY 4 ABLA: follow bladder spasm: encouraged suppository hiccups: improved proph: scd's Subjective: walking on dickinson. feeling well Objective: Vital Signs Temp Pulse Resp BP Pulse Ox 36.4 C 79 18 131/75 H 95 05/17/18 07:54 05/17/18 12:24 05/17/18 07:54 05/17/18 12:24 05/17/18 07:54 Laboratory Results 05/17/18 05:00 05/15/18 05:00 05/16/18 05/17/18 05/18/18 05:59 05:59 05:59 Intake Total 2660 2390 500 Output Total 3260 720 Balance -600 1670 500 PT 18.3 SEC (12.0-15.0) H 05/13/18 19:08 INR 1.50 (0.83-1.16) H 05/13/18 19:08 - Physical Exam Constitutional: no apparent distress, appears nourished Eyes: PERRL, anicteric sclera Ears, Nose, Mouth, Throat: moist mucous membranes, hearing normal Cardiovascular: regular rate and rhythym, no murmur, rub, or gallop Respiratory: no respiratory distress, no rales or rhonchi Gastrointestinal: normoactive bowel sounds, soft, non-tender abdomen Genitourinary: no bladder fullness, kilpatrick in urethra, other (pink urine) Skin: warm Musculoskeletal: full muscle strength ICD10 Worksheet Patient Problems: Problems Problem Status Onset Benign localized hyperplasia of prostate with urinary obstruction Acute Hemorrhage of prostate Acute
--- NOTE | 2018-05-17 13:52 | SOAPPROG ---
SOAP Progress Note Assessment/Plan: Assessment: Benign localized hyperplasia of prostate with urinary obstruction Acute POD 4, stable, minimal pain, continue care, bladder spasms and attempt use of vesicare,10 mg daily Hemorrhage of prostate Acute POD 4, stable, appreciate intensive care providers , anemia and recommended rx due to gradual loss of blood in healing period, cont care, AM , AM labs ordered Plan: continue post operative care 05/17/18 13:50 Subjective: better and pain is controlled Objective: Vital Signs Temp Pulse Resp BP Pulse Ox 36.4 C 79 18 131/75 H 95 05/17/18 07:54 05/17/18 12:24 05/17/18 07:54 05/17/18 12:24 05/17/18 07:54 Laboratory Results 05/17/18 05:00 05/15/18 05:00 05/16/18 05/17/18 05/18/18 05:59 05:59 05:59 Intake Total 2660 2390 500 Output Total 3260 720 Balance -600 1670 500 PT 18.3 SEC (12.0-15.0) H 05/13/18 19:08 INR 1.50 (0.83-1.16) H 05/13/18 19:08 Physical Exam - Physical Exam General Appearance: alert Neck: supple Respiratory: No respiratory distress Cardiac/Chest: regular rate, rhythm Abdomen: soft Neuro/Psych: alert, oriented x 3 ICD10 Worksheet Patient Problems: Problems Problem Status Onset Benign localized hyperplasia of prostate with urinary obstruction Acute Hemorrhage of prostate Acute
[2018-05-17] MEDS: MELATONIN 3 MG TAB PO SCH (21:07)
[2018-05-18] MEDS: ACETAMINOPHEN 325 MG TAB PO PRN ×2 (05:02→20:39)
[2018-05-18] MEDS: LEVOTHYROXINE 175 MCG TAB PO SCH (05:02)
[2018-05-18 05:18] LABS: PLATELET COUNT 231 10^3/uL (150-400)
[2018-05-18] MEDS: SOLIFENACIN SUCCINATE 5 MG TAB PO SCH (08:44)
--- NOTE | 2018-05-18 14:28 | HOSPPROG ---
Hospitalist Progress Note Assessment/Plan: # hypovolemic shock d/t ABLA post prostatectomy - s/p 2U PRBC # prostatectomy - cont CBI and catheter per urology Subjective: occasional bladder spasms continue Objective: Vital Signs Temp Pulse Resp BP Pulse Ox 36.4 C 80 12 119/71 93 05/18/18 09:05 05/18/18 11:30 05/18/18 11:30 05/18/18 11:30 05/18/18 11:30 Laboratory Results 05/18/18 05:10 05/17/18 13:55 05/17/18 05/18/18 05/19/18 05:59 05:59 05:59 Intake Total 2390 4530 500 Output Total 720 3350 Balance 1670 1180 500 PT 18.3 SEC (12.0-15.0) H 05/13/18 19:08 INR 1.50 (0.83-1.16) H 05/13/18 19:08 chart reviewed op notes reviewed CXR reviewed - Physical Exam Constitutional: no apparent distress, appears nourished Cardiovascular: regular rate and rhythym, no murmur, rub, or gallop Respiratory: no respiratory distress, no rales or rhonchi, clear to auscultation Gastrointestinal: soft, non-tender abdomen, other (L sided catheter; vincent clean) Genitourinary: other (3 way catheter) ICD10 Worksheet Patient Problems: Problems Problem Status Onset Benign localized hyperplasia of prostate with urinary obstruction Acute Hemorrhage of prostate Acute
--- NOTE | 2018-05-18 14:36 | SOAPPROG ---
SOAP Progress Note Assessment/Plan: Assessment: post op hemorrhage post prostatectomy SOB Plan: Will slowly deflate catheter balloon, irrigate gently if needed and remove kilpatrick catheter. Clamp SPT and if patient voids, leave SPT clamped. If he does not void, will unclamp SPT. Normal vitals- will order chest xray. encouraged to ambulate. discussed with RN 05/18/18 14:35 05/18/18 15:05 Subjective: Feels ok. Continues to have bladder spasms. Objective: Vital Signs Temp Pulse Resp BP Pulse Ox 36.4 C 80 12 119/71 93 05/18/18 09:05 05/18/18 11:30 05/18/18 11:30 05/18/18 11:30 05/18/18 11:30 Laboratory Results 05/18/18 05:10 05/17/18 13:55 05/17/18 05/18/18 05/19/18 05:59 05:59 05:59 Intake Total 2390 4530 500 Output Total 720 3350 Balance 1670 1180 500 PT 18.3 SEC (12.0-15.0) H 05/13/18 19:08 INR 1.50 (0.83-1.16) H 05/13/18 19:08 Physical Exam - Physical Exam General Appearance: alert, no apparent distress Respiratory: other (short of breath), No respiratory distress, No accessory muscle use Cardiac/Chest: regular rate, rhythm Male Genitalia: other (clear urine in both kilpatrick and spt bage) Skin: normal color ICD10 Worksheet Patient Problems: Problems Problem Status Onset Benign localized hyperplasia of prostate with urinary obstruction Acute Hemorrhage of prostate Acute
[2018-05-18] MEDS ORDERED: IOPAMIDOL (ISOVUE 370) 100 ML BTL IV ONE (15:27)
[2018-05-18 17:47] LABS: PLATELET COUNT 252 10^3/uL (150-400)
[2018-05-18 17:53] LABS: INR 1.16 (0.83-1.16)
[2018-05-18] MEDS: MELATONIN 3 MG TAB PO SCH (20:40)
[2018-05-19] MEDS: HEPARIN 10,000 UNIT/10 ML MDV (1,000 UNIT/ML) IVP PRN ×3 (03:24→17:16)
[2018-05-19] MEDS: LEVOTHYROXINE 175 MCG TAB PO SCH (05:48)
[2018-05-19 06:14] LABS: PLATELET COUNT 265 10^3/uL (150-400)
[2018-05-19] MEDS: SOLIFENACIN SUCCINATE 5 MG TAB PO SCH (08:23)
--- NOTE | 2018-05-19 08:29 | HOSPPROG ---
Hospitalist Progress Note Assessment/Plan: # acute PE - treatment is very high risk with recent hemorrhage - cont heparin gtt - consider transition of heparin gtt tomorrow if stable - cont central line for another 24 hours - cont Q4 vitals, tele x 24 more hours - check LE US in case rebleeds - could get IVC filter if LE clot # rash on back - c/w contact dermatitis - hydroxyzine, hydrocort cream # leukocytosis - suspect stress response rather than infection - follow again tomorrow # hypovolemic shock d/t ABLA post prostatectomy - s/p 2U PRBC Subjective: still SOB; mild amount of blood in SPT bag; rash on back Objective: Vital Signs Temp Pulse Resp BP Pulse Ox 37.1 C 68 20 113/71 94 05/19/18 03:22 05/19/18 03:22 05/19/18 03:22 05/19/18 03:22 05/19/18 03:22 Microbiology 05/13/18 22:20 Blood Culture - Final Blood 05/13/18 21:20 Blood Culture - Final Blood Laboratory Results 05/19/18 05:55 05/19/18 05:55 05/18/18 05/19/18 05/20/18 05:59 05:59 05:59 Intake Total 4530 950 Output Total 3350 3025 525 Balance 1180 -2075 -525 PT 15.0 SEC (12.0-15.0) 05/18/18 17:10 INR 1.16 (0.83-1.16) 05/18/18 17:10 high risk - Physical Exam Constitutional: no apparent distress, appears nourished Cardiovascular: regular rate and rhythym, no murmur, rub, or gallop, systolic murmur Respiratory: no rales or rhonchi, respiratory distress (mild), No expiratory wheeze, No inspiratory crackles Gastrointestinal: soft, non-tender abdomen, other (SPT tube, pink tinged uring in bag) Skin: other (papular rash throughout back) ICD10 Worksheet Patient Problems: Problems Problem Status Onset Benign localized hyperplasia of prostate with urinary obstruction Acute Hemorrhage of prostate Acute
[2018-05-19] MEDS: hydrOXYzine HCL 25 MG TAB PO PRN ×2 (09:33→21:21)
[2018-05-19] MEDS: HYDROCORTISONE 2.5% 30 GM CRTUBE TP SCH ×2 (09:33→21:22)
--- NOTE | 2018-05-19 10:07 | SOAPPROG ---
SOAP Progress Note Assessment/Plan: Assessment/Plan: post op hemorrhage post prostatectomy- request SPT to be clamped. PE- started anticoagulation yesterday. Urine is pink but not grossly bloody. Appreciate hospitalist management. 05/19/18 10:04 Subjective: feels ok. voiding frequently thru urethra. Objective: Vital Signs Temp Pulse Resp BP Pulse Ox 36.5 C 77 20 116/78 98 05/19/18 08:00 05/19/18 08:00 05/19/18 08:00 05/19/18 08:00 05/19/18 08:00 Microbiology 05/13/18 22:20 Blood Culture - Final Blood 05/13/18 21:20 Blood Culture - Final Blood Laboratory Results 05/19/18 05:55 05/19/18 05:55 05/18/18 05/19/18 05/20/18 05:59 05:59 05:59 Intake Total 4530 950 250 Output Total 3350 3025 525 Balance 1180 -2075 -275 PT 15.0 SEC (12.0-15.0) 05/18/18 17:10 INR 1.16 (0.83-1.16) 05/18/18 17:10 Physical Exam - Physical Exam General Appearance: alert, no apparent distress Respiratory: No respiratory distress Male Genitalia: other (pink urine in SPT and urinal) Skin: normal color, warm/dry ICD10 Worksheet Patient Problems: Problems Problem Status Onset Benign localized hyperplasia of prostate with urinary obstruction Acute Hemorrhage of prostate Acute
[2018-05-19] MEDS: ACETAMINOPHEN 325 MG TAB PO PRN (21:18)
[2018-05-19] MEDS: MELATONIN 3 MG TAB PO SCH (21:18)
[2018-05-20 05:16] LABS: PLATELET COUNT 295 10^3/uL (150-400)
[2018-05-20] MEDS: LEVOTHYROXINE 175 MCG TAB PO SCH (06:35)
[2018-05-20] MEDS: hydrOXYzine HCL 25 MG TAB PO PRN ×2 (06:35→10:22)
[2018-05-20] MEDS: HEPARIN/DEXTROSE 500 ML IV SCH ×2 (06:40→22:58)
[2018-05-20] MEDS: HYDROCORTISONE 2.5% 30 GM CRTUBE TP SCH ×2 (09:44→21:36)
[2018-05-20] MEDS: SOLIFENACIN SUCCINATE 5 MG TAB PO SCH (09:44)
--- NOTE | 2018-05-20 12:28 | SOAPPROG ---
SOAP Progress Note Assessment/Plan: Assessment/Plan: post op hemorrhage post prostatectomy- urinary frequency continues but decreasing PE- continued heprin. Urine now pink with clots. Will monitor. . Appreciate hospitalist management. 05/20/18 12:26 Subjective: feels better than yesterday, not as SOB Objective: Vital Signs Temp Pulse Resp BP Pulse Ox 36.6 C 81 16 115/77 96 05/20/18 08:30 05/20/18 08:30 05/20/18 08:30 05/20/18 08:30 05/20/18 08:30 Microbiology 05/13/18 22:20 Blood Culture - Final Blood 05/13/18 21:20 Blood Culture - Final Blood Laboratory Results 05/20/18 05:08 05/19/18 05:55 05/19/18 05/20/18 05/21/18 05:59 05:59 05:59 Intake Total 950 2708 950 Output Total 3025 4225 900 Balance -2075 -1517 50 PT 15.0 SEC (12.0-15.0) 05/18/18 17:10 INR 1.16 (0.83-1.16) 05/18/18 17:10 Physical Exam - Physical Exam General Appearance: alert, no apparent distress Respiratory: normal breath sounds, No respiratory distress Cardiac/Chest: regular rate, rhythm Male Genitalia: other (pink urine with 1 clot) Skin: normal color, warm/dry ICD10 Worksheet Patient Problems: Problems Problem Status Onset Benign localized hyperplasia of prostate with urinary obstruction Acute Hemorrhage of prostate Acute
--- NOTE | 2018-05-20 15:57 | HOSPPROG ---
Hospitalist Progress Note Assessment/Plan: 63yo M with urinary obstruction 2/2 BPH s/p prostatectomy complicated by hemorrhagic shock (which has now resolved) and acute pulmonary embolus. This is my first encounter with this patient. We are consulting for urology. # Acute PE: First thrombotic event. Likely provoked. Treatment is very high risk with recent hemorrhage. LE US neg for DVT. - cont heparin gtt - discussed transition to oral anticoagulant (warfarin vs DOAC) in next 24 hours or so - ok to discontinue central line, telemetry, cont q4h vitals - will need at least 3 months of anticoagulation # Blood loss anemia: H/H stable for now. Still having ongoing bleeding via urethra. - Transfuse to keep hgb>7 # Hemorrhagic shock: Post prostatectomy. Resolved. s/p 2u PRBC and tranexamic acid. # Contact dermatitis: - hydroxyzine, hydrocort cream # Leukocytosis: Improving, suspect stress response. # Urinary obstruction s/p prostatectomy: Urology primary. POD#7 We will continue to follow along. Subjective: Feeling well today. Still having significant blood in urine and clots but not obstructing. Denies abd pain, nausea, fever. Objective: Vital Signs Temp Pulse Resp BP Pulse Ox 36.6 C 81 16 115/77 96 05/20/18 08:30 05/20/18 08:30 05/20/18 08:30 05/20/18 08:30 05/20/18 08:30 Laboratory Results 05/20/18 05:08 05/19/18 05:55 05/19/18 05/20/18 05/21/18 05:59 05:59 05:59 Intake Total 950 2708 1950 Output Total 3025 4225 1700 Balance -2075 -1517 250 PT 15.0 SEC (12.0-15.0) 05/18/18 17:10 INR 1.16 (0.83-1.16) 05/18/18 17:10 - Physical Exam Constitutional: no apparent distress, appears nourished, not in pain Eyes: PERRL, anicteric sclera, EOMI Ears, Nose, Mouth, Throat: moist mucous membranes, hearing normal, ears appear normal, no oral mucosal ulcers Cardiovascular: regular rate and rhythym, no murmur, rub, or gallop Respiratory: no respiratory distress, no rales or rhonchi, clear to auscultation Gastrointestinal: normoactive bowel sounds, soft, non-tender abdomen, no palpable masses Genitourinary: other (blood clot emerging from urethral meatus) Skin: no rashes or abrasions, no fluctuance, no induration Neurologic: AAOx3, sensation intact bilaterally Psychiatric: interacting appropriately, not anxious, not encephalopathic, thought process linear ICD10 Worksheet Patient Problems: Problems Problem Status Onset Benign localized hyperplasia of prostate with urinary obstruction Acute Hemorrhage of prostate Acute
[2018-05-20] MEDS: MELATONIN 3 MG TAB PO SCH (21:35)
[2018-05-21] MEDS: LEVOTHYROXINE 175 MCG TAB PO SCH (04:58)
[2018-05-21] MEDS: SOLIFENACIN SUCCINATE 5 MG TAB PO SCH (07:54)
[2018-05-21] MEDS: HYDROCORTISONE 2.5% 30 GM CRTUBE TP SCH ×2 (07:54→21:44)
--- NOTE | 2018-05-21 09:53 | SOAPPROG ---
SOAP Progress Note Assessment/Plan: Assessment: Benign localized hyperplasia of prostate with urinary obstruction Acute POD 8, stable, minimal pain, continue care, bladder spasms and attempt use of vesicare,10 mg daily Hemorrhage of prostate Acute POD 8, stable, appreciate intensive care providers , on anticoagulation bleeding from prostate and sonogram noted small bladder clot. Discussed with medical team and plan stop anticoagulation, may return to or for cysto yet wait til anticoag ineffective. Risk of DVT / PE and bleeding assessed and feel bleeding is most concerning issue at this time. Plan: continue post operative care 05/21/18 09:43 Subjective: bleeding and scared Objective: Vital Signs Temp Pulse Resp BP Pulse Ox 36.7 C 68 18 105/71 95 05/21/18 07:24 05/21/18 07:24 05/21/18 07:24 05/21/18 07:24 05/21/18 07:24 Laboratory Results 05/21/18 05:20 05/19/18 05:55 05/20/18 05/21/18 05/22/18 05:59 05:59 05:59 Intake Total 2708 2650 Output Total 4225 3650 Balance -1517 -1000 PT 15.0 SEC (12.0-15.0) 05/18/18 17:10 INR 1.16 (0.83-1.16) 05/18/18 17:10 Physical Exam - Physical Exam General Appearance: alert Respiratory: No respiratory distress Cardiac/Chest: regular rate, rhythm Abdomen: soft Male Genitalia: other (blood and clots per urethra, SP draining old blood and irrigates easily per staff, discussed possibility for OR assessment endoscopically later today) Back: No CVA tenderness Skin: warm/dry Extremities: No calf tenderness Neuro/Psych: alert, oriented x 3 ICD10 Worksheet Patient Problems: Problems Problem Status Onset Benign localized hyperplasia of prostate with urinary obstruction Acute Hemorrhage of prostate Acute
[2018-05-21] MEDS: D5W 1/2 NS 1,000 ML IV SCH ×2 (10:34→20:35)
[2018-05-21] MEDS ORDERED: D5W NS W/ 20 KCl/L 1,000 ML IV SCH (12:15)
--- NOTE | 2018-05-21 12:17 | ASMTCMCOM ---
CM Note CM Note Notes: There is a possibility pt may go back to OR for a washout per RN. Pt should have no DC needs. Date Signed: 05/21/2018 12:16 PM Electronically Signed By:Minda Turner LCSW
--- NOTE | 2018-05-21 14:53 | HOSPPROG ---
Hospitalist Progress Note Assessment/Plan: 63yo M with urinary obstruction 2/2 BPH s/p prostatectomy complicated by hemorrhagic shock and acute pulmonary embolus. We are consulting for urology. Continues to have ongoing bleeding. # Acute PE: First thrombotic event. Likely provoked. LE US neg for DVT. - After weighing risks/benefits with patient and urologist Dr Mitchell, heparin gtt discontinued this morning in hopes that prostate cavity/bladder can heal - Pending urologic evaluation this afternoon (see below), would plan to resume low dose heparin gtt as soon as possible - Resume cardiac monitoring, continue central line - Will need at least 3 months of anticoagulation. Switch to OAC once bleeding stabilized # Blood loss anemia: H/H stable although continues to have ongoing bleeding - Dr Mitchell to eval this afternoon and considering re-evaluation in OR - Daily CBC, transfuse to keep hgb>7 # Urinary obstruction s/p prostatectomy: Urology primary. POD#8. # Contact dermatitis: - hydroxyzine, hydrocort cream # Leukocytosis: Slightly worsened today, suspect stress response. Plan discussed with patient and at length. We will continue to follow along. Subjective: Had rough night. Lots of clots in urethra and bleeding overnight. Ultrasound didn't show any clots in bladder. Objective: Vital Signs Temp Pulse Resp BP Pulse Ox 36.8 C 74 18 101/66 96 05/21/18 12:00 05/21/18 12:00 05/21/18 12:00 05/21/18 12:00 05/21/18 12:00 Laboratory Results 05/21/18 05:20 05/19/18 05:55 05/20/18 05/21/18 05/22/18 05:59 05:59 05:59 Intake Total 2708 2650 Output Total 4225 3650 1000 Balance -1517 -1000 -1000 PT 15.0 SEC (12.0-15.0) 05/18/18 17:10 INR 1.16 (0.83-1.16) 05/18/18 17:10 - Physical Exam Constitutional: no apparent distress, appears nourished, not in pain Eyes: PERRL, anicteric sclera, EOMI Cardiovascular: regular rate and rhythym, no murmur, rub, or gallop Respiratory: no respiratory distress, no rales or rhonchi, clear to auscultation Gastrointestinal: other (infraumbilical vertical surgical incision c/d/i), No tenderness, No distension Genitourinary: other (LLQ suprapubic catheter in place c/d/i) Skin: no rashes or abrasions, no fluctuance, no induration Neurologic: AAOx3, sensation intact bilaterally Psychiatric: interacting appropriately, not anxious, not encephalopathic, thought process linear ICD10 Worksheet Patient Problems: Problems Problem Status Onset Benign localized hyperplasia of prostate with urinary obstruction Acute Hemorrhage of prostate Acute
[2018-05-21] MEDS: MELATONIN 3 MG TAB PO SCH (20:34)
[2018-05-22] MEDS: LEVOTHYROXINE 175 MCG TAB PO SCH (05:51)
[2018-05-22] MEDS: SOLIFENACIN SUCCINATE 5 MG TAB PO SCH (09:01)
[2018-05-22] MEDS: HYDROCORTISONE 2.5% 30 GM CRTUBE TP SCH ×2 (10:04→21:23)
--- NOTE | 2018-05-22 15:10 | HOSPPROG ---
Hospitalist Progress Note Assessment/Plan: 63yo M with urinary obstruction 2/2 BPH s/p prostatectomy complicated by hemorrhagic shock and acute pulmonary embolus. We are consulting for urology. Continues to have ongoing bleeding. # Acute PE: First thrombotic event. Likely provoked. LE US neg for DVT. Very high risk of anticoagulating due to hemorrhage. - Off anticoagulation due to bleeding since AM on 05/21. Will develop plan with urology re: restarting. If restarted, will plan on low dose heparin gtt - Continue cardiac monitoring, central line - Will need at least 3 months of anticoagulation. Switch to OAC once bleeding stabilized # Blood loss anemia: H/H downtrending due to known blood losses. Hemodynamically stable - Daily CBC, transfuse to keep hgb>7 # Urinary obstruction s/p prostatectomy: Urology primary (Dr Mitchell). POD#9. # Contact dermatitis: - hydroxyzine, hydrocort cream # Leukocytosis: Slightly improved today, suspect stress response. Plan discussed with patient today. We will continue to follow along. Subjective: Patient feeling quite well this morning. Got good sleep last night. No pain. Much less blood in kilpatrick bag. However, is no longer urinating from urethra. Objective: Vital Signs Temp Pulse Resp BP Pulse Ox 36.4 C 95 14 97/66 L 97 05/22/18 11:25 05/22/18 11:25 05/22/18 11:25 05/22/18 11:25 05/22/18 11:25 Laboratory Results 05/22/18 06:45 05/22/18 06:45 05/21/18 05/22/18 05/23/18 05:59 05:59 05:59 Intake Total 2650 2900 Output Total 3650 4150 1950 Balance -1000 -1250 -1950 PT 15.0 SEC (12.0-15.0) 05/18/18 17:10 INR 1.16 (0.83-1.16) 05/18/18 17:10 - Physical Exam Constitutional: no apparent distress, appears nourished, not in pain Eyes: PERRL, anicteric sclera, EOMI Ears, Nose, Mouth, Throat: moist mucous membranes, hearing normal, ears appear normal, no oral mucosal ulcers Cardiovascular: regular rate and rhythym, no murmur, rub, or gallop Respiratory: no respiratory distress, no rales or rhonchi, clear to auscultation Genitourinary: other (LLQ suprapubic catheter c/d/i, infraumbilical incision c/d /i) Neurologic: AAOx3, sensation intact bilaterally Psychiatric: interacting appropriately, not anxious, not encephalopathic, thought process linear ICD10 Worksheet Patient Problems: Problems Problem Status Onset Benign localized hyperplasia of prostate with urinary obstruction Acute Hemorrhage of prostate Acute
--- NOTE | 2018-05-22 17:42 | SOAPPROG ---
SOAP Progress Note Assessment/Plan: Assessment: Benign localized hyperplasia of prostate with urinary obstruction Acute POD 9, stable, much improved Hemorrhage of prostate Acute POD 9, stable, appreciate hospitalist care providers, plan to cautiously use sub Q heparin in am, clamp SP catheter and see if pt can void, discussed and addressed all questions Plan: continue post operative care 05/22/18 17:39 Subjective: much improved Objective: Vital Signs Temp Pulse Resp BP Pulse Ox 36.6 C 72 14 104/69 98 05/22/18 17:05 05/22/18 17:05 05/22/18 17:05 05/22/18 17:05 05/22/18 17:05 Laboratory Results 05/22/18 06:45 05/22/18 06:45 05/21/18 05/22/18 05/23/18 05:59 05:59 05:59 Intake Total 2650 2900 Output Total 3650 4150 2450 Balance -1000 -1250 -2450 PT 15.0 SEC (12.0-15.0) 05/18/18 17:10 INR 1.16 (0.83-1.16) 05/18/18 17:10 Physical Exam - Physical Exam General Appearance: alert Neck: supple Respiratory: No respiratory distress Abdomen: other (eating and bowel movement reported) Skin: normal color, warm/dry, No cyanosis, No diaphoresis, No jaundice Neuro/Psych: alert, oriented x 3 ICD10 Worksheet Patient Problems: Problems Problem Status Onset Benign localized hyperplasia of prostate with urinary obstruction Acute Hemorrhage of prostate Acute
[2018-05-22] MEDS: MELATONIN 3 MG TAB PO SCH (21:14)
[2018-05-22] MEDS: hydrOXYzine HCL 25 MG TAB PO PRN (23:16)
[2018-05-23] MEDS: LEVOTHYROXINE 175 MCG TAB PO SCH (05:53)
[2018-05-23] MEDS ORDERED: ENOXAPARIN 60 MG/0.6 ML SYR SC SCH (09:15)
[2018-05-23] MEDS: SOLIFENACIN SUCCINATE 5 MG TAB PO SCH (09:26)
[2018-05-23] MEDS: HYDROCORTISONE 2.5% 30 GM CRTUBE TP SCH (10:08)
--- NOTE | 2018-05-23 10:31 | SOAPPROG ---
SOAP Progress Note Assessment/Plan: Assessment: Benign localized hyperplasia of prostate with urinary obstruction Acute POD 10, stable, much improved, consider DC since pt is voiding Hemorrhage of prostate Acute POD 10, stable, appreciate hospitalist care providers, plan to cautiously use sub Q heparin clamp SP catheter and pt is voiding, discussed and addressed all questions Plan: consider DC on Lovenox per hospitalist on dosing, remove vincent, continue SP cath and see in one week 05/23/18 10:54 Subjective: voiding and improving Objective: Vital Signs Temp Pulse Resp BP Pulse Ox 36.8 C 63 12 105/66 96 05/23/18 08:00 05/23/18 08:00 05/23/18 08:00 05/23/18 08:00 05/23/18 04:00 Laboratory Results 05/23/18 05:47 05/23/18 05:47 05/22/18 05/23/18 05/24/18 05:59 05:59 05:59 Intake Total 2900 900 Output Total 4150 3900 525 Balance -1250 -3000 -525 PT 15.0 SEC (12.0-15.0) 05/18/18 17:10 INR 1.16 (0.83-1.16) 05/18/18 17:10 Physical Exam - Physical Exam General Appearance: alert Neck: full range of motion Respiratory: No respiratory distress Cardiac/Chest: regular rate, rhythm Abdomen: soft Back: No CVA tenderness Skin: warm/dry Extremities: No calf tenderness Neuro/Psych: alert, normal mood/affect, oriented x 3 ICD10 Worksheet Patient Problems: Problems Problem Status Onset Benign localized hyperplasia of prostate with urinary obstruction Acute Hemorrhage of prostate Acute
--- NOTE | 2018-05-23 11:48 | ASMTLACE ---
LACE Length of stay for Answers: 7-13 days current admission Acuity / Level of Answers: Yes Care: Did the patient have an inpatient admission? Comorbidities - select Answers: Other Notes: Hypothyroid; BPH all that apply # of Emergency department Answers: 1-2 visits in the last 6 months Score: 10 Date Signed: 05/23/2018 11:47 AM Electronically Signed By:Yandy Brumfield RN
--- NOTE | 2018-05-23 11:51 | ASMTCMCOM ---
CM Note CM Note Notes: Patient medically stable for discharge. Met with patient to discuss d/c planning. Patient does live at home with . He is concerned about as is she is currently having some of her own medical issues. We discussed options of home care and private duty for additional help in the home, patient declines at this time. He understands he can reach out to primary care should he and/or need assistance in the home. Patient will d/c home today with , no needs at this time. Plan: Independent Date Signed: 05/23/2018 11:50 AM Electronically Signed By:Yandy Brumfield RN
[2018-05-23 13:13] VITALS: BP 105/62
[2018-05-23] MEDS: ACETAMINOPHEN 325 MG TAB PO PRN (13:54)
--- NOTE | 2018-05-23 14:22 | HOSPPROG ---
Hospitalist Progress Note Assessment/Plan: 63yo M with urinary obstruction 2/2 BPH s/p prostatectomy complicated by hemorrhagic shock and acute pulmonary embolus. We are consulting for urology. Continues to have ongoing bleeding. # Acute PE: First thrombotic event. Likely provoked. LE US neg for DVT. High risk of anticoagulating due to hemorrhage. - Restarted therapeutic dose LMWH (60mg/kg BID) this morning and has tolerated with no bleeding - Plan to discharge today on LMWH (teaching done prior to discharge) with plan to transition to DOAC vs warfarin at urology follow up - Discussed at length risks/benefits of DOAC vs warfarin, patient and plan to do own reading prior to appointment - Will need at least 3 months of anticoagulation # Blood loss anemia: H/H stable. Hemodynamically stable - No indication for PRBC transfusion # Urinary obstruction s/p prostatectomy: Urology primary (Dr Mitchell). POD#10. # Contact dermatitis: Improved - hydroxyzine, hydrocort cream # Leukocytosis: Slightly improved today, suspect stress response. Plan discussed with patient and today. He is being discharged with urology follow up. Subjective: Doing very well this morning. Suprapubic catheter out, peeing from urethra with only few drops of blood. No pain. Objective: Vital Signs Temp Pulse Resp BP Pulse Ox 36.7 C 63 12 105/62 95 05/23/18 12:00 05/23/18 08:00 05/23/18 12:00 05/23/18 12:00 05/23/18 12:00 Laboratory Results 05/23/18 05:47 05/23/18 05:47 05/22/18 05/23/18 05/24/18 05:59 05:59 05:59 Intake Total 2900 900 Output Total 4150 3900 925 Balance -1250 -3000 -925 PT 15.0 SEC (12.0-15.0) 05/18/18 17:10 INR 1.16 (0.83-1.16) 05/18/18 17:10 - Physical Exam Constitutional: no apparent distress, appears nourished, not in pain Eyes: PERRL, anicteric sclera, EOMI Ears, Nose, Mouth, Throat: moist mucous membranes, hearing normal, ears appear normal, no oral mucosal ulcers Cardiovascular: regular rate and rhythym, no murmur, rub, or gallop Respiratory: no respiratory distress, no rales or rhonchi, clear to auscultation Gastrointestinal: normoactive bowel sounds, soft, non-tender abdomen, no palpable masses Genitourinary: other (incision sites c/d/i) Neurologic: AAOx3, sensation intact bilaterally ICD10 Worksheet Patient Problems: Problems Problem Status Onset Benign localized hyperplasia of prostate with urinary obstruction Acute Hemorrhage of prostate Acute
--- NOTE | 2018-05-26 10:06 | GDS ---
[f rep st] DISCHARGE SUMMARY ADMISSION DIAGNOSIS: Benign prostatic hypertrophy with urinary retention. DISCHARGE DIAGNOSIS: Benign prostatic hypertrophy with urinary retention. PROCEDURE DURING HOSPITALIZATION: Open suprapubic prostatectomy. HOSPITAL COURSE: The gentleman was an a.m. admission, had the above procedure performed. It was a c omplicated hospital course by having postoperative bleeding that required him going back to surgery o n the same day postoperatively for evacuation of clots and stopping of prostatic fossa hemorrhage. T hen, approximately postop day 6, he developed shortness of breath and had a documented pulmonary embo cherelle. He had the assessment for leg DVT and none were found by ultrasound. He was placed on heparin and then, with full heparinization, he started bleeding again. So, we stopped the heparin, bleeding abated. We removed his catheter. He was voiding spontaneously with urgency. And then the plan is t o resume his anticoagulation, and Dr. Priest has managed that. At the present time, he is to be tr eated with Lovenox, and he will be discharged on Lovenox and then changed to warfarin in the future, and will assess how they want the anticoagulation maintained. At the present time, the recommendatio n from the hospitalist is 3 months of anticoagulation. We will see him in the office in 1 week and, at that point, consider removing his suprapubic tube if he is voiding spontaneously, and having no si gnificant hemorrhage. Pathology on the prostate was benign. /[id number]/MODL
== END 2018-05-23 15:52 | disposition home or self-care (01) | DRG 707 ==
LOC: F1N 09:30 → F2N 20:23 → F1N 05-15 16:54
PROVIDERS: ADMIT Specialist; ATTEND Specialist
PROC: 0W3R0ZZ Control Bleeding in Genitourinary Tract, Open Approach (ICD-10-PCS; 2018-05-13)
PROC: 0VT00ZZ Resection of Prostate, Open Approach (ICD-10-PCS; principal; 2018-05-13 10:45)
PROC: 0JH80VZ Insertion of Infusion Pump into Abdomen Subcutaneous Tissue and Fascia, Open Approach (ICD-10-PCS; principal; 2018-05-13 10:45)
DX: N40.1 Benign prostatic hyperplasia with lower urinary tract symptoms (principal); I26.99 Other pulmonary embolism without acute cor pulmonale; N99.820 Postprocedural hemorrhage of a genitourinary system organ or structure following a genitourinary system procedure; D62 Acute posthemorrhagic anemia; L25.9 Unspecified contact dermatitis, unspecified cause; R33.8 Other retention of urine; E03.9 Hypothyroidism, unspecified
CPT/HCPCS: 85520-90; J0330; J0690; J1100; J1170; J1335; J1644; J1650; J1885; J2250; J2370; J2405; J2704; J3010; J3360; P9016; Q9967